=== PATIENT | male | born 1965 | race Caucasian/White ===

== ENCOUNTER 2021-11-08 00:14 | Emergency (ER) | payer BC ==
[~2021-11-08] VITALS: Ht 167.6 cm; Wt 97.5 kg
[~2021-11-08 00:14] MED LIST: CYCL10 PO; LISI20 PO; Lovastatin20 MG PO; METF500 PO; Norco 5-325 Ta1 EACH PO; Prinivil10 MG PO
== END 2021-11-08 03:38 | disposition home or self-care (01) ==
LOC: ER 00:14
DX: S49.92XA Unspecified injury of left shoulder and upper arm, initial encounter (principal); E11.9 Type 2 diabetes mellitus without complications; I10 Essential (primary) hypertension; E78.5 Hyperlipidemia, unspecified; Z79.899 Other long term (current) drug therapy; Z79.84 Long term (current) use of oral hypoglycemic drugs; W00.0XXA Fall on same level due to ice and snow, initial encounter
CPT/HCPCS: 73030; 99283-25; A9270

== ENCOUNTER 2023-02-01 00:04 | Emergency (ER) | payer BC ==
[~2023-02-01] VITALS: Ht 175.3 cm; Wt 88.5 kg
[2023-02-01 02:16] LABS: BASOPHILS ABSOLUTE AUTO 0.07 K/mm3 (0.00-0.23); BASOPHILS PERCENT AUTO 1 % (0-2); EOSINOPHILS ABSOLUTE AUTO 0.13 K/mm3 (0.00-0.68); EOSINOPHILS PERCENT AUTO 2 % (0-6); Hematocrit 47.2 % (37.0-53.0); Hemoglobin 15.7 g/dL (13.5-17.5); IMMATURE GRAN ABSOLUTE AUTO 0.01 K/mm3 (0.00-0.10); IMMATURE GRAN PERCENT AUTO 0 % (0-1); LYMPHOCYTES ABSOLUTE AUTO 2.85 K/mm3 (0.84-5.20); LYMPHOCYTES PERCENT AUTO 39 % (21-46); MONOCYTES PERCENT AUTO 8 % (4-13); Mean Corpuscular HGB 31.6 pg (26.0-34.0); Mean Corpuscular HGB Conc 33.3 g/dL (31.5-36.5); Mean Corpuscular Volume 95 fL (80-100); Mean Platelet Volume 9.4 fL (9.1-12.4); NEUTROPHILS ABSOLUTE AUTO 3.65 K/mm3 (1.96-9.15); NEUTROPHILS PERCENT AUTO 50 % (41-73); Platelet Count 298 K/mm3 (150-400); RDW Standard Deviation 45.6 fL (35.1-46.3); Red Blood Cell Count 4.97 M/mm3 (4.30-5.90); White Blood Cell Count 7.31 K/mm3 (4.00-11.30)
[2023-02-01 02:24] LABS: Albumin, Blood 3.9 g/dL (3.4-5.0); Albumin/Globulin Ratio 1.2 (0.8-1.8); Bilirubin, Total 0.4 mg/dL (0.1-1.0); Bun/Creatinine Ratio 25.3 (12.0-20.0); Calcium, Blood 9.2 mg/dL (8.5-10.1); Creatinine, Blood 0.79 mg/dL (0.60-1.20); Globulin, Blood 3.3 g/dL (2.2-4.0); Potassium, Blood 4.2 mmol/L (3.5-5.5); Total Protein, Blood 7.2 g/dL (6.4-8.2)
[2023-02-01] MEDS ORDERED: MECL25 PO (05:13)
== END 2023-02-01 05:33 | disposition home or self-care (01) ==
LOC: ER 00:04
PROVIDERS: Emergency Medicine
DX: R42 Dizziness and giddiness (principal); E11.9 Type 2 diabetes mellitus without complications; I10 Essential (primary) hypertension; E78.5 Hyperlipidemia, unspecified
CPT/HCPCS: 36415; 70450; 80053; 85025; 93005; 93010

== ENCOUNTER 2023-04-13 18:09 | Emergency (ER) | payer BC ==
[~2023-04-13] VITALS: Ht 175.3 cm; Wt 95.2 kg
[~2023-04-13 18:09] MED LIST changes: +MECL25 PO
[2023-04-13 18:23] VITALS: BP 138/90
== END 2023-04-13 18:38 | disposition home or self-care (01) ==
LOC: ER 18:09
DX: S30.92XA Unspecified superficial injury of abdominal wall, initial encounter (principal); I10 Essential (primary) hypertension; E11.9 Type 2 diabetes mellitus without complications; E78.5 Hyperlipidemia, unspecified; Z79.84 Long term (current) use of oral hypoglycemic drugs; Z79.899 Other long term (current) drug therapy; W21.07XA Struck by softball, initial encounter
CPT/HCPCS: 99283

== ENCOUNTER 2023-09-04 08:57 | Day surgery (SDC) | payer BC ==
[~2023-09-04] VITALS: Ht 170.2 cm; Wt 93.1 kg
[~2023-09-04 08:57] MED LIST changes: +Kristalose20 GM PO; +Miralax17 GM PO; +ONDA4ODT SL
[2023-09-04] MEDS ORDERED: SITA25T2 (09:32)
[2023-09-04] MEDS ORDERED: IBUP800 (09:32)
[2023-09-04] MEDS ORDERED: SUMA25 (09:33)
[2023-09-04 11:30] VITALS: BP 133/86
--- NOTE | 2023-09-04 11:33 | NUR ---
09/04/23 1133 Vale Connor IV DC'D, CATH INTACT. PT TOLERATED WELL. COBAN/GAUZE IN PLACE
== END 2023-09-04 11:34 | disposition home or self-care (01) ==
LOC: ORSCSDS 08:57
PROVIDERS: Internal Medicine Gastroenterology
PROC: 0DBK8ZX Excision of Ascending Colon, Via Natural or Artificial Opening Endoscopic, Diagnostic (ICD-10-PCS; principal; 2023-09-04 10:15)
PROC: 0DBL8ZX Excision of Transverse Colon, Via Natural or Artificial Opening Endoscopic, Diagnostic (ICD-10-PCS; principal; 2023-09-04 10:15)
DX: Z12.11 Encounter for screening for malignant neoplasm of colon (principal); D12.3 Benign neoplasm of transverse colon; D12.2 Benign neoplasm of ascending colon; K57.30 Diverticulosis of large intestine without perforation or abscess without bleeding; K64.4 Residual hemorrhoidal skin tags; I10 Essential (primary) hypertension; Z79.899 Other long term (current) drug therapy; Z79.82 Long term (current) use of aspirin; Z68.35 Body mass index [BMI] 35.0-35.9, adult
CPT/HCPCS: 82947; 88305; J2250; J2704; J7120